=== PATIENT | female | born 1970 | race Caucasian/White ===

== ENCOUNTER 2016-10-06 21:42 | Inpatient (IN) | payer MEDICAID ==
[2016-10-06 22:25] LABS: Hematocrit 38 % (35-47); Hemoglobin 12.8 g/dl (12.0-16.0); Mean Corpuscular HGB Conc 34 g/dl (31-36); Mean Corpuscular Hemoglobin 32 pg (27-31); Mean Corpuscular Volume 95 fL (80-97); Mean Platelet Volume 9 um3 (7.4-10.4); Red Blood Count 3.96 10^6/ul (4.0-5.4); Red Cell Distribution Width 12 % (10.5-15); White Blood Count 9.1 10^3/ul (3.5-10.8)
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
[2016-10-06 22:42] LABS: ALT 36 U/L (7-52); AST 40 U/L (13-39); Albumin 4.5 g/dL (3.2-5.2); Alkaline Phosphatase 45 U/L (34-104); Anion Gap 9 mmol/L (2-11); BUN/Creatinine Ratio 15.4 (8-20); Blood Urea Nitrogen 10 mg/dL (6-24); CO2 Carbon Dioxide 28 mmol/L (22-32); Calcium 9.4 mg/dL (8.6-10.3); Chloride 100 mmol/L (101-111); EGFR African American 125.7 (>60); EGFR Non-African American 97.7 (>60); Globulin 2.9 g/dL (2-4); Glucose 90 mg/dL (70-100); Potassium 2.9 mmol/L (3.5-5.0); Sodium 137 mmol/L (133-145); Total Protein 7.4 g/dL (6.4-8.9)
[2016-10-06 23:06] LABS: Acetaminophen < 15 mcg/mL; Alcohol < 10 mg/dL (<10); Salicylate < 2.50 mg/dL (<30)
[2016-10-06 23:17] LABS: TSH (Thyroid Stimulating Horm) 0.69 mcIU/mL (0.34-5.60)
[2016-10-07] MEDS ORDERED: LORazepam INJ* 2 MG/ML 1 ML VIAL IM ONE (03:17)
[2016-10-07] MEDS ORDERED: Potassium Chloride LIQUID* 20 MEQ PACKET PO ONE (03:37)
[2016-10-07 03:57] LABS: Urine Bilirubin Negative (Negative); Urine Glucose Negative (Negative); Urine Nitrite Negative (Negative)
[2016-10-07 04:11] LABS: Benzodiazepine Urine Screen None Detected (None Detect)
[2016-10-07] MEDS ORDERED: Acetaminophen TAB* 325 MG PO PRN (04:40)
[2016-10-07] MEDS ORDERED: Al Hydrox/Mg Hydrox/Simet LIQ* 30 ML UDC PO PRN (04:40)
[2016-10-07] MEDS: Vitamin THERAPEUTIC TAB PO SCH (10:13)
[2016-10-07] MEDS: Potassium Chlor TAB* 20 MEQ TAB.ER PO SCH (14:23)
[2016-10-07] MEDS: ARIPiprazole TAB* 5 MG PO SCH (20:38)
[2016-10-07] MEDS: Lithium Carbonate TAB* 300 MG PO SCH (20:38)
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
[2016-10-07] MEDS ORDERED: LORazepam INJ* 2 MG/ML 1 ML VIAL ONE (23:12)
[2016-10-07] MEDS ORDERED: Haloperidol INJ IV/IM* 5 MG/ML AMP ONE (23:12)
[2016-10-07] MEDS: LORazepam TAB(*) 1 MG PO PRN (23:25)
[2016-10-08] MEDS: Lithium Carbonate TAB* 300 MG PO SCH (09:12)
[2016-10-08] MEDS: Potassium Chlor TAB* 20 MEQ TAB.ER PO SCH (09:13)
[2016-10-08] MEDS: Vitamin THERAPEUTIC TAB PO SCH (09:13)
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
[2016-10-08] MEDS: Potassium Chloride LIQUID* 20 MEQ PACKET PO SCH (16:25)
[2016-10-08] MEDS ORDERED: Haloperidol INJ IV/IM* 5 MG/ML AMP ONE (19:23)
[2016-10-08] MEDS ORDERED: diPHENhydraMINE IV* 50 MG/ML 1 ml VIAL (BENADRYL) ONE (19:23)
[2016-10-08] MEDS ORDERED: LORazepam INJ* 2 MG/ML 1 ML VIAL ONE (19:23)
[2016-10-08] MEDS ORDERED: LORazepam INJ* 2 MG/ML 1 ML VIAL IM ONE (19:30)
[2016-10-08] MEDS ORDERED: diPHENhydraMINE IV* 50 MG/ML 1 ml VIAL (BENADRYL) IM ONE (19:30)
[2016-10-08] MEDS ORDERED: Haloperidol INJ IV/IM* 5 MG/ML AMP IM ONE (19:30)
[2016-10-08] MEDS: ARIPiprazole TAB* 5 MG PO SCH (20:31)
[2016-10-08] MEDS: Lithium LIQ* 300 MG/5 ML UDC PO SCH (20:31)
[2016-10-09] MEDS: Potassium Chloride LIQUID* 20 MEQ PACKET PO SCH (09:31)
[2016-10-09] MEDS: Lithium LIQ* 300 MG/5 ML UDC PO SCH ×2 (09:31→21:23)
[2016-10-09] MEDS: Vitamin THERAPEUTIC TAB PO SCH (09:32)
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
[2016-10-09] MEDS: ARIPiprazole TAB* 5 MG PO SCH (21:23)
[2016-10-09] MEDS: QUEtiapine XR TAB* 200 MG PO SCH (21:23)
[2016-10-10] MEDS: Vitamin THERAPEUTIC TAB PO SCH (08:15)
[2016-10-10] MEDS: Potassium Chloride LIQUID* 20 MEQ PACKET PO SCH (08:16)
[2016-10-10] MEDS: Lithium LIQ* 300 MG/5 ML UDC PO SCH ×2 (08:17→20:52)
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
[2016-10-10] MEDS: QUEtiapine XR TAB* 200 MG PO SCH (20:52)
[2016-10-10] MEDS: ARIPiprazole TAB* 5 MG PO SCH (20:56)
[2016-10-11] MEDS ORDERED: LORazepam INJ* 2 MG/ML 1 ML VIAL ONE (08:44)
[2016-10-11] MEDS ORDERED: Haloperidol INJ IV/IM* 5 MG/ML AMP ONE (08:45)
[2016-10-11] MEDS ORDERED: diPHENhydraMINE IV* 50 MG/ML 1 ml VIAL (BENADRYL) ONE (08:45)
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
[2016-10-11] MEDS: Potassium Chloride LIQUID* 20 MEQ PACKET PO SCH (09:48)
[2016-10-11] MEDS: Lithium LIQ* 300 MG/5 ML UDC PO SCH ×2 (09:48→20:23)
[2016-10-11] MEDS: Vitamin THERAPEUTIC TAB PO SCH (09:49)
[2016-10-11] MEDS: QUEtiapine XR TAB* 200 MG PO SCH (20:23)
[2016-10-11] MEDS: ARIPiprazole TAB* 5 MG PO SCH (20:23)
[2016-10-12] MEDS: Potassium Chloride LIQUID* 20 MEQ PACKET PO SCH (07:28)
[2016-10-12] MEDS: Vitamin THERAPEUTIC TAB PO SCH (07:28)
[2016-10-12] MEDS: Lithium LIQ* 300 MG/5 ML UDC PO SCH ×2 (07:28→20:14)
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
[2016-10-12] MEDS: QUEtiapine XR TAB* 200 MG PO SCH (20:14)
[2016-10-12] MEDS: ARIPiprazole TAB* 5 MG PO SCH (20:14)
[2016-10-13] MEDS ORDERED: Vitamin THERAPEUTIC TAB ONE (09:17)
[2016-10-13] MEDS: Potassium Chloride LIQUID* 20 MEQ PACKET PO SCH (09:17)
[2016-10-13] MEDS: Vitamin THERAPEUTIC TAB PO SCH (09:18)
[2016-10-13] MEDS: Lithium LIQ* 300 MG/5 ML UDC PO SCH ×2 (09:24→20:22)
[2016-10-13] MEDS: ARIPiprazole TAB* 5 MG PO SCH (20:20)
[2016-10-13] MEDS: QUEtiapine XR TAB* 200 MG PO SCH (20:22)
[2016-10-14] MEDS: Lithium LIQ* 300 MG/5 ML UDC PO SCH ×2 (09:06→20:45)
[2016-10-14] MEDS: Potassium Chloride LIQUID* 20 MEQ PACKET PO SCH (09:06)
[2016-10-14] MEDS: Vitamin THERAPEUTIC TAB PO SCH (09:07)
[2016-10-14] MEDS: QUEtiapine XR TAB* 200 MG PO SCH (20:45)
[2016-10-14] MEDS: ARIPiprazole TAB* 5 MG PO SCH (20:45)
[2016-10-15] MEDS: Lithium LIQ* 300 MG/5 ML UDC PO SCH ×2 (07:59→20:54)
[2016-10-15] MEDS: Potassium Chloride LIQUID* 20 MEQ PACKET PO SCH (07:59)
[2016-10-15] MEDS: Vitamin THERAPEUTIC TAB PO SCH (08:00)
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
[2016-10-15] MEDS: QUEtiapine XR TAB* 200 MG PO SCH (20:54)
[2016-10-15] MEDS: ARIPiprazole TAB* 5 MG PO SCH (21:15)
[2016-10-16] MEDS: Lithium LIQ* 300 MG/5 ML UDC PO SCH ×2 (09:16→21:01)
[2016-10-16] MEDS: Potassium Chloride LIQUID* 20 MEQ PACKET PO SCH (09:18)
[2016-10-16] MEDS: Vitamin THERAPEUTIC TAB PO SCH (09:19)
--- NOTE | 2016-10-16 11:45 | PN ---
MHU: Group Therapy Note - Service Type Service Type: [id number] Group Psychotherapy - Cognitive Behavioral Group Therapy ( CBT):Patient presented in CBT programming as disorganized and disruptive in discussion and needed repeated redirection to attend to presented materials.
[2016-10-16] MEDS: QUEtiapine XR TAB* 200 MG PO SCH (21:01)
[2016-10-16] MEDS: ARIPiprazole TAB* 5 MG PO SCH (21:01)
[2016-10-16] MEDS ORDERED: diPHENhydraMINE IV* 50 MG/ML 1 ml VIAL (BENADRYL) ONE (21:38)
[2016-10-16] MEDS ORDERED: LORazepam INJ* 2 MG/ML 1 ML VIAL ONE (21:38)
[2016-10-16] MEDS ORDERED: Haloperidol INJ IV/IM* 5 MG/ML AMP ONE (21:38)
[2016-10-17] MEDS: Potassium Chloride LIQUID* 20 MEQ PACKET PO SCH (08:44)
[2016-10-17] MEDS: Vitamin THERAPEUTIC TAB PO SCH (08:44)
[2016-10-17] MEDS: Lithium LIQ* 300 MG/5 ML UDC PO SCH ×2 (08:44→21:15)
[2016-10-17] MEDS ORDERED: Ziprasidone IM INJ* 20 MG/ML VIAL IM PRN (15:15)
[2016-10-17] MEDS ORDERED: QUEtiapine XR TAB* 200 MG PO SCH (15:20)
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
[2016-10-17] MEDS: ARIPiprazole TAB* 5 MG PO SCH (21:17)
[2016-10-18] MEDS: Potassium Chloride LIQUID* 20 MEQ PACKET PO SCH (09:19)
[2016-10-18] MEDS: Vitamin THERAPEUTIC TAB PO SCH (09:23)
[2016-10-18] MEDS: Lithium LIQ* 300 MG/5 ML UDC PO SCH ×2 (09:23→20:20)
[2016-10-18] MEDS ORDERED: QUEtiapine XR TAB* 50 MG PO SCH (21:00)
[2016-10-18] MEDS: ARIPiprazole TAB* 5 MG PO SCH (22:18)
[2016-10-19] MEDS: Lithium LIQ* 300 MG/5 ML UDC PO SCH ×2 (08:16→20:31)
[2016-10-19] MEDS: Potassium Chloride LIQUID* 20 MEQ PACKET PO SCH (08:16)
[2016-10-19] MEDS: Vitamin THERAPEUTIC TAB PO SCH (08:17)
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
[2016-10-19] MEDS: QUEtiapine XR TAB* 200 MG PO SCH (20:31)
[2016-10-20] MEDS: Lithium LIQ* 300 MG/5 ML UDC PO SCH ×2 (10:39→21:01)
[2016-10-20] MEDS: LORazepam TAB(*) 1 MG PO PRN (10:39)
[2016-10-20] MEDS: Vitamin THERAPEUTIC TAB PO SCH (10:45)
[2016-10-20] MEDS: Potassium Chloride LIQUID* 20 MEQ PACKET PO SCH (10:46)
[2016-10-20 11:01] LABS: BUN/Creatinine Ratio 16.2 (8-20); Calcium 9.6 mg/dL (8.6-10.3); EGFR African American 108.2 (>60); EGFR Non-African American 84.1 (>60); Potassium 3.5 mmol/L (3.5-5.0)
[2016-10-20 11:25] LABS: Lithium 0.22 mmol/L (0.6-1.2)
[2016-10-20] MEDS: QUEtiapine XR TAB* 200 MG PO SCH (21:04)
[2016-10-21] MEDS: Potassium Chloride LIQUID* 20 MEQ PACKET PO SCH (09:45)
[2016-10-21] MEDS: Lithium LIQ* 300 MG/5 ML UDC PO SCH ×2 (09:45→20:50)
[2016-10-21] MEDS: Vitamin THERAPEUTIC TAB PO SCH (09:45)
--- NOTE | 2016-10-21 20:08 | PN ---
Progress Note - Progress Note Note: Patient told there are two patients on the unit (did not disclose their names) who have tested positive for Influenza A and I am recommending taking Tamiflu as a prophylactic measure. I made it clear this was optional. She declined the treatment after hearing of the indications, risks, benefits and alternatives, stating she she has knowledge this is an [facility] experiment.
[2016-10-21] MEDS: QUEtiapine XR TAB* 200 MG PO SCH (20:50)
[2016-10-22] MEDS: Vitamin THERAPEUTIC TAB PO SCH (09:35)
[2016-10-22] MEDS: Potassium Chloride LIQUID* 20 MEQ PACKET PO SCH (09:46)
[2016-10-22] MEDS: Lithium LIQ* 300 MG/5 ML UDC PO SCH ×2 (09:46→20:47)
--- NOTE | 2016-10-22 10:48 | PN ---
Subjective - Subjective Service Type: 90368 Hosp care 15 min low complexity Subjective: The patient remains hyperverbal and manic, asking me questions about herbal products for her mood and suggesting that her right-hand dominance has led to her disability. She is taking meds in accordance with the timber trimmer's involuntary treatment order. Objective - Appearance Appearance: Healthy Appearing Dysmorphic Features: No Hygiene: Normal Grooming: Well Kept - Behavior Psychomotor Activities: Abnormal-Increased Exhibits Abnormal Movement: No - Attitude and Relatedness Attitude and Relatedness: Psychotically Related Eye Contact: Fair - Speech Quality: Pressured Latencies: Short Quantity: Copious - Mood Patient's Decription of Mood: "Fine" - Affect Observed Affect: Labile Affect Consistent with: Euphoria - Thought Process Patient's Thought Process: Filght of Ideas Thought Content: Yes Paranoid Ideation, No Passive Wish, No Suicidal Planning, No Homicidal Ideation - Sensorium Experiencing Hallucinations: No, Sensorium is Clear Type of Hallucinations: Visual: No, Auditory: No, Command: No - Level of Consciousness Level of Consciousness: Alert Orientation: Yes Intact, Yes Orientated to Time, Yes Orientated to Place, Yes Orientated to Person - Impulse Control Impulse Control: Poor - Insight and Judgement Insight and Judgement: Impaired - Group Participation Particating in Group Activities: No - Medication Management Medication Management Adherence: Yes Assessment - Assessment Merits Inpatient Hospitalization: For Immediate Safety, For Stabilization Inpatient DSM-IV Dx: BPAD I MRE manic with psychosis. cannabis use disorder Clinical Impression: 45 y.o. single, white female with a history of multiple past psychiatric hospitalizations for bipolar disorder now admitted involuntarily and receiving forced medications for acute chan with psychosis. Plan - Plan Treatment Plan: Name: JEREL WALTERS Birthdate: 1970 [id number] Patient tolerating quetiapine and lithium well so far. Will order lithium, HbgA1c and lipid labs. Continue involuntary treatment as patient remains acutely manic and dangerous to herself. Continued Medication Management: Start Medication Medications: Current Medications Acetaminophen (Tylenol Tab*) 650 mg PO Q4H PRN PRN Reason: PAIN or TEMP > 101 F Al Hydrox/Mg Hydrox/Simethicone (Maalox Plus*) 30 ml PO Q4H PRN PRN Reason: INDIGESTION [place] Citrate ([place] Liq*) 300 mg PO BID [facility] Last Admin: 10/22/16 09:46 Dose: 300 mg Lorazepam (Ativan Tab(*)) 2 mg PO Q6H PRN PRN Reason: ANXIETY Last Admin: 10/20/16 10:39 Dose: 2 mg Multivitamins (Theragran Tab*) 1 tab PO DAILY [facility] Last Admin: 10/22/16 09:35 Dose: 1 tab Potassium Chloride (Klor-Con Liquid*) 20 meq PO DAILY [facility] Last Admin: 10/22/16 09:46 Dose: 20 meq Quetiapine Fumarate (Seroquel Xr Tab*) 200 mg PO BEDTIME [facility] Last Admin: 10/21/16 20:50 Dose: 200 mg Ziprasidone (Geodon Im Inj*) 20 mg IM BID PRN PRN Reason: Refusal of Seroquel or Li Last Admin: 10/18/16 11:17 Dose: 20 mg - Discharge Plan Discharge Plan: Inpatient Hospitalization
--- NOTE | 2016-10-22 12:00 | PN ---
[facility]: Group Therapy Note - Service Type Service Type: [id number] Group Psychotherapy - Dayanna presented as hyperverbal throughout cbt programming this morning. She impresses as over valuing her thoughts, exhibting poor insight regarding her symptoms and remaining angry about being coerced into taking medications by court order.
[2016-10-22] MEDS: QUEtiapine XR TAB* 200 MG PO SCH (20:48)
[2016-10-23 08:11] LABS: HDL Cholesterol 60.5 mg/dL
[2016-10-23 08:24] LABS: Lithium 0.37 mmol/L (0.6-1.2)
[2016-10-23] MEDS: Potassium Chloride LIQUID* 20 MEQ PACKET PO SCH (11:19)
[2016-10-23] MEDS: Vitamin THERAPEUTIC TAB PO SCH (11:19)
[2016-10-23] MEDS: Lithium LIQ* 300 MG/5 ML UDC PO SCH ×2 (11:20→21:13)
[2016-10-23] MEDS: QUEtiapine XR TAB* 200 MG PO SCH (21:08)
[2016-10-24] MEDS: Lithium LIQ* 300 MG/5 ML UDC PO SCH ×2 (09:47→21:02)
[2016-10-24] MEDS: Potassium Chloride LIQUID* 20 MEQ PACKET PO SCH (09:47)
[2016-10-24] MEDS: Vitamin THERAPEUTIC TAB PO SCH (09:47)
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
[2016-10-24] MEDS: QUEtiapine XR TAB* 200 MG PO SCH (21:02)
[2016-10-25] MEDS: Temazepam CAP* 15 MG PO PRN (01:03)
[2016-10-25 07:45] LABS: Albumin 3.8 g/dL (3.2-5.2); Calcium 9.1 mg/dL (8.6-10.3); EGFR African American 137.8 (>60); EGFR Non-African American 107.2 (>60); Globulin 2.8 g/dL (2-4); Total Bilirubin 0.4 mg/dL (0.2-1.0); Total Protein 6.6 g/dL (6.4-8.9)
[2016-10-25 07:58] LABS: Lithium 0.48 mmol/L (0.6-1.2)
[2016-10-25] MEDS: Vitamin THERAPEUTIC TAB PO SCH (09:50)
[2016-10-25] MEDS: Potassium Chloride LIQUID* 20 MEQ PACKET PO SCH (09:50)
[2016-10-25] MEDS: Lithium LIQ* 300 MG/5 ML UDC PO SCH ×2 (09:51→21:41)
[2016-10-25 10:32] LABS: Syphilis Index < 0.1 Index
[2016-10-25 10:54] LABS: Potassium 4.1 mmol/L (3.5-5.0)
[2016-10-25 13:14] LABS: TSH (Thyroid Stimulating Horm) 1.8 mcIU/mL (0.34-5.60)
[2016-10-25] MEDS: QUEtiapine XR TAB* 200 MG PO SCH (21:40)
[2016-10-26] MEDS: Temazepam CAP* 15 MG PO PRN ×2 (04:04→20:13)
[2016-10-26] MEDS: Potassium Chloride LIQUID* 20 MEQ PACKET PO SCH (09:05)
[2016-10-26] MEDS: Lithium LIQ* 300 MG/5 ML UDC PO SCH (09:30)
[2016-10-26] MEDS: Vitamin THERAPEUTIC TAB PO SCH (09:30)
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
[2016-10-26] MEDS: QUEtiapine XR TAB* 200 MG PO SCH (20:13)
[2016-10-26] MEDS: Lithium Carbonate TAB* 300 MG PO SCH (20:14)
[2016-10-26] MEDS ORDERED: Divalproex ER TAB(*) 500 MG PO SCH (21:00)
[2016-10-27] MEDS: Vitamin THERAPEUTIC TAB PO SCH (08:26)
[2016-10-27] MEDS: Lithium Carbonate TAB* 300 MG PO SCH ×2 (08:41→20:45)
[2016-10-27] MEDS: Potassium Chloride LIQUID* 20 MEQ PACKET PO SCH (08:42)
[2016-10-27] MEDS: Temazepam CAP* 15 MG PO PRN (20:47)
[2016-10-27] MEDS: QUEtiapine XR TAB* 200 MG PO SCH (21:29)
[2016-10-28] MEDS: Vitamin THERAPEUTIC TAB PO SCH (09:09)
[2016-10-28] MEDS: Lithium Carbonate TAB* 300 MG PO SCH ×2 (09:09→20:30)
[2016-10-28] MEDS: Potassium Chloride LIQUID* 20 MEQ PACKET PO SCH (09:14)
[2016-10-28] MEDS ORDERED: QUEtiapine TAB* 100 MG PO ONE (13:29)
[2016-10-28] MEDS: Temazepam CAP* 15 MG PO PRN (20:31)
[2016-10-28] MEDS: QUEtiapine XR TAB* 200 MG PO SCH (20:32)
[2016-10-29] MEDS: Lithium Carbonate TAB* 300 MG PO SCH ×2 (10:01→20:31)
[2016-10-29] MEDS: Vitamin THERAPEUTIC TAB PO SCH (10:01)
[2016-10-29] MEDS: Potassium Chloride LIQUID* 20 MEQ PACKET PO SCH (10:01)
--- NOTE | 2016-10-29 11:09 | PN ---
[facility]: Group Therapy Note - Service Type Service Type: 07452 Group Psychotherapy - Cognitive Behavioral Therapy (CBT): Patient presents with high volume of speech that impresses as being coherent within the context of self-report, but is tangential and off topic in group context. Concerns regarding disorganization of thought are apparent.
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
[2016-10-29] MEDS ORDERED: QUEtiapine XR TAB* 300 MG PO SCH (21:00)
[2016-10-30] MEDS: LORazepam TAB(*) 1 MG PO PRN (04:05)
[2016-10-30] MEDS: Lithium Carbonate TAB* 300 MG PO SCH ×2 (10:08→20:55)
[2016-10-30] MEDS: Vitamin THERAPEUTIC TAB PO SCH (10:09)
[2016-10-30] MEDS: Potassium Chloride LIQUID* 20 MEQ PACKET PO SCH (10:11)
[2016-10-30] MEDS: QUEtiapine XR TAB* 200 MG PO SCH (20:55)
[2016-10-30] MEDS: Temazepam CAP* 15 MG PO SCH (21:55)
[2016-10-31] MEDS: Vitamin THERAPEUTIC TAB PO SCH (09:05)
[2016-10-31] MEDS: Lithium Carbonate TAB* 300 MG PO SCH ×2 (09:05→21:34)
[2016-10-31] MEDS: Potassium Chloride LIQUID* 20 MEQ PACKET PO SCH (09:06)
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
--- NOTE | 2016-10-31 12:54 | PN ---
MHU: Group Therapy Note - Service Type Service Type: [id number] Group Psychotherapy - Cognitive Behavioral Group Therapy ( CBT):Patient was attentive and participatory in CBT programming this morning, and remained in good behavioral control. Patient expressed positive insights regarding relevant treatment interventions and goals.
--- NOTE | 2016-10-31 18:28 | PN ---
Progress Note - Progress Note Note: Performed limited evaluation re: possible oral thrush. Pt has had voice hoarseness x 2 months. Remembers having "residue" on her gums 1 week ago. denies pain with swallowing or sore throat. On evaluation the oropharynx is grossly clear with scant injection of posterior oropharynx rising the possibility of GERD. Will prescribe Prilosec 20 mg Daily. If symptoms continue despite med use x 2 weeks recommend ENT evaluation
[2016-10-31] MEDS: Temazepam CAP* 15 MG PO SCH (21:35)
[2016-10-31] MEDS: QUEtiapine XR TAB* 200 MG PO SCH (21:35)
[2016-11-01] MEDS: Omeprazole CAP* 20 MG PO SCH (05:56)
[2016-11-01] MEDS: Lithium Carbonate TAB* 300 MG PO SCH ×2 (09:19→21:25)
[2016-11-01] MEDS: Vitamin THERAPEUTIC TAB PO SCH (09:19)
[2016-11-01] MEDS: Potassium Chloride LIQUID* 20 MEQ PACKET PO SCH (09:20)
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
--- NOTE | 2016-11-01 13:51 | PN ---
MHU: Group Therapy Note - Service Type Service Type: [id number] Group Psychotherapy - Cognitive Behavioral Group Therapy ( CBT):Patient was attentive and participatory in CBT programming this morning, and remained in good behavioral control. Patient expressed positive insights regarding relevant treatment interventions and goals.
[2016-11-01] MEDS: QUEtiapine XR TAB* 200 MG PO SCH (21:24)
[2016-11-01] MEDS: Temazepam CAP* 15 MG PO SCH (21:24)
[2016-11-01] MEDS: QUEtiapine XR TAB* 300 MG PO SCH (21:24)
[2016-11-02] MEDS: Vitamin THERAPEUTIC TAB PO SCH (08:37)
[2016-11-02] MEDS: Omeprazole CAP* 20 MG PO SCH (08:38)
[2016-11-02] MEDS: Lithium Carbonate TAB* 300 MG PO SCH ×2 (08:39→21:47)
[2016-11-02] MEDS ORDERED: Fluconazole 100 MG TAB* TAB PO ONE (13:15)
--- NOTE | 2016-11-02 13:22 | PN ---
Subjective - Subjective Service Type: [id number] Hosp care 15 min low complexity Subjective: The patient is seen briefly in the doorway to her room on the unit. Also present are her friend, Zully, and nurse Mira. The patient is hyperverbal and talks at length about a succession of disparate topics, from rap music, to therapeutic massage. "Are you my doctor for the day? This is Zully. She is a massage therapist also. She would put her hands on you, but she would ask you questions too. She would want to know how to heal you." The patient brings up the subject of her raspy throat, which she feels is preventing her from singing and rapping effectively on the unit. "I talked to the med nurse and he says it might be thrush. He thinks I need diflucan." She denies SI or HI. Objective - Appearance Appearance: Healthy Appearing Dysmorphic Features: No Hygiene: Normal Grooming: Fairly Well Kept - Behavior Psychomotor Activities: Abnormal-Increased Exhibits Abnormal Movement: No - Attitude and Relatedness Attitude and Relatedness: Psychotically Related Eye Contact: Good - Speech Quality: Pressured Latencies: Short Quantity: Copious - Mood Patient's Decription of Mood: "Great" - Affect Observed Affect: Euphoric Affect Consistent with: Euphoria - Thought Process Patient's Thought Process: Filght of Ideas Thought Content: Yes Paranoid Ideation, No Passive Wish, No Suicidal Planning, No Homicidal Ideation - Sensorium Experiencing Hallucinations: No, Sensorium is Clear Type of Hallucinations: Visual: No, Auditory: No, Command: No - Level of Consciousness Level of Consciousness: Alert Orientation: Yes Intact, Yes Orientated to Time, Yes Orientated to Place, Yes Orientated to Person - Impulse Control Impulse Control: Poor - Insight and Judgement Insight and Judgement: Impaired - Group Participation Particating in Group Activities: Yes - Medication Management Medication Management Adherence: Yes Assessment - Assessment Merits Inpatient Hospitalization: For Immediate Safety, For Stabilization Inpatient DSM-IV Dx: BPAD I MRE manic with psychosis. cannabis use disorder Clinical Impression: 45 y.o. single, white female with a history of multiple past psychiatric hospitalizations for bipolar disorder now admitted involuntarily and receiving forced medications for acute chan with psychosis. Plan - Plan Treatment Plan: Name: JEREL WALTERS Birthdate: 1970 [id number] Patient tolerating quetiapine and lithium well so far, but awaiting efficacy. Continue involuntary treatment as patient remains acutely manic and dangerous to herself. Will order one-time dose of diflucan 150mg PO for oral candidiasis , as per patient's insistence. Continued Medication Management: Start Medication Medications: Current Medications Acetaminophen (Tylenol Tab*) 650 mg PO Q4H PRN PRN Reason: PAIN or TEMP > 101 F Al Hydrox/Mg Hydrox/Simethicone (Maalox Plus*) 30 ml PO Q4H PRN PRN Reason: INDIGESTION Last Admin: 10/31/16 18:44 Dose: 30 ml Fluconazole (Diflucan 100 Mg Tab*) 150 mg PO ONCE ONE Stop: 11/02/16 13:16 [place] Carbonate ([place] Carbonate Tab*) 600 mg PO BID [facility] Last Admin: 11/02/16 08:39 Dose: 600 mg Lorazepam (Ativan Tab(*)) 2 mg PO Q6H PRN PRN Reason: ANXIETY Last Admin: 10/30/16 04:05 Dose: 2 mg Multivitamins (Theragran Tab*) 1 tab PO DAILY [facility] Last Admin: 11/02/16 08:37 Dose: 1 tab Omeprazole (Prilosec Cap*) 20 mg PO DAILY@0600 [facility] Last Admin: 11/02/16 08:38 Dose: 20 mg Quetiapine Fumarate (Seroquel Xr Tab*) 200 mg PO BEDTIME [facility] Last Admin: 11/01/16 21:24 Dose: 200 mg Quetiapine Fumarate (Seroquel Xr Tab*) 300 mg PO BEDTIME [facility] Last Admin: 11/01/16 21:24 Dose: 300 mg Temazepam (Restoril Cap*) 15 mg PO BEDTIME [facility] Last Admin: 11/01/16 21:24 Dose: 15 mg Ziprasidone (Geodon Im Inj*) 20 mg IM BID PRN PRN Reason: Refusal of Seroquel or Li Last Admin: 10/18/16 11:17 Dose: 20 mg - Discharge Plan Discharge Plan: Inpatient Hospitalization
[2016-11-02] MEDS: QUEtiapine XR TAB* 200 MG PO SCH (21:46)
[2016-11-02] MEDS: QUEtiapine XR TAB* 300 MG PO SCH (21:46)
[2016-11-02] MEDS: Temazepam CAP* 15 MG PO SCH (21:47)
[2016-11-03] MEDS: Omeprazole CAP* 20 MG PO SCH (09:46)
[2016-11-03] MEDS: Vitamin THERAPEUTIC TAB PO SCH (09:46)
[2016-11-03] MEDS: Lithium Carbonate TAB* 300 MG PO SCH ×2 (09:46→20:32)
[2016-11-03] MEDS: Temazepam CAP* 15 MG PO SCH (20:32)
[2016-11-03] MEDS: QUEtiapine XR TAB* 300 MG PO SCH (20:32)
[2016-11-03] MEDS: QUEtiapine XR TAB* 200 MG PO SCH (20:32)
[2016-11-04] MEDS: Omeprazole CAP* 20 MG PO SCH (06:01)
[2016-11-04] MEDS: Lithium Carbonate TAB* 300 MG PO SCH ×2 (08:38→21:48)
[2016-11-04] MEDS: Vitamin THERAPEUTIC TAB PO SCH (08:38)
[2016-11-04] MEDS: Temazepam CAP* 15 MG PO SCH (21:46)
[2016-11-04] MEDS: QUEtiapine XR TAB* 200 MG PO SCH (21:47)
[2016-11-04] MEDS: QUEtiapine XR TAB* 300 MG PO SCH (21:48)
[2016-11-05] MEDS: Vitamin THERAPEUTIC TAB PO SCH (08:32)
[2016-11-05] MEDS: Omeprazole CAP* 20 MG PO SCH (08:32)
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
[2016-11-05] MEDS: Lithium Carbonate TAB* 300 MG PO SCH ×2 (11:14→21:53)
[2016-11-05] MEDS: Temazepam CAP* 15 MG PO SCH (21:54)
[2016-11-05] MEDS: QUEtiapine XR TAB* 300 MG PO SCH (21:54)
[2016-11-06] MEDS: Omeprazole CAP* 20 MG PO SCH (09:21)
[2016-11-06] MEDS: Vitamin THERAPEUTIC TAB PO SCH (09:21)
[2016-11-06] MEDS: Lithium Carbonate TAB* 300 MG PO SCH ×2 (09:21→21:38)
[2016-11-06] MEDS: QUEtiapine XR TAB* 300 MG PO SCH (21:38)
[2016-11-06] MEDS: Temazepam CAP* 15 MG PO SCH (21:39)
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
[2016-11-07 08:09] LABS: BUN/Creatinine Ratio 17.6 (8-20); Calcium 9.5 mg/dL (8.6-10.3); EGFR African American 119.3 (>60); EGFR Non-African American 92.7 (>60); Globulin 2.8 g/dL (2-4); Potassium 4.3 mmol/L (3.5-5.0); Total Bilirubin 0.3 mg/dL (0.2-1.0); Total Protein 6.8 g/dL (6.4-8.9)
[2016-11-07 08:15] LABS: Lithium 0.81 mmol/L (0.6-1.2)
[2016-11-07] MEDS: Omeprazole CAP* 20 MG PO SCH (09:16)
[2016-11-07] MEDS: Lithium Carbonate TAB* 300 MG PO SCH ×2 (09:16→21:23)
[2016-11-07] MEDS: Vitamin THERAPEUTIC TAB PO SCH (09:17)
--- NOTE | 2016-11-07 10:59 | PN ---
MHU: Group Therapy Note - Service Type Service Type: 40776 Group Psychotherapy - Cognitive Behavioral Group Therapy ( CBT):Patient was attentive and participatory in CBT programming this morning, and remained in good behavioral control. Patient expressed positive insights regarding relevant treatment interventions and goals.
[2016-11-07] MEDS: Temazepam CAP* 15 MG PO SCH (21:24)
[2016-11-07] MEDS: QUEtiapine XR TAB* 300 MG PO SCH (21:24)
[2016-11-08] MEDS: Vitamin THERAPEUTIC TAB PO SCH (08:31)
[2016-11-08] MEDS: Omeprazole CAP* 20 MG PO SCH (08:31)
[2016-11-08] MEDS: Lithium Carbonate TAB* 300 MG PO SCH ×2 (08:32→20:29)
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
[2016-11-08] MEDS: QUEtiapine XR TAB* 300 MG PO SCH (20:29)
[2016-11-08] MEDS: Temazepam CAP* 15 MG PO SCH (20:29)
[2016-11-09] MEDS: Omeprazole CAP* 20 MG PO SCH (07:59)
[2016-11-09] MEDS: Lithium Carbonate TAB* 300 MG PO SCH ×2 (07:59→20:34)
[2016-11-09] MEDS: Vitamin THERAPEUTIC TAB PO SCH (07:59)
--- NOTE | 2016-11-09 12:02 | PN ---
Subjective - Subjective Service Type: 32525 Hosp care 15 min low complexity Subjective: Dayanna is seen by this observer this morning as coverage for Dr. Liang, who is out until Saturday (11/12). She is found in her room, on the door to which she has posted a scrawled note requesting entrants to knock and await her response before entering. She has several magazines and papers carefully and idiosyncratically arranged on the floor on top of a blanket and she is wearing what appears to be a dish-rag wrapped around her head like a bandana. After taking some time to compose herself she joins me at the table in the hallway to discuss her care. She voices no complaints about her illnesses and states she feels ready for discharge. As she speaks she veers into vaguely paranoid and grandiose subject material at times, for example, talking at length about her feeling that someone is entering her property uninvited and dropping cigarette butts in her yard. 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 At times during the interview she seems to catch herself and moves the discourse into more mundane subjects such as how she will support her self occupationally after her release. She is hyperverbal and spacey throughout the interaction. Objective - Appearance Appearance: Well Developed/Nourished Dysmorphic Features: No Hygiene: Normal Grooming: Fairly Well Kept - Behavior Psychomotor Activities: Normal Exhibits Abnormal Movement: No - Attitude and Relatedness Attitude and Relatedness: Psychotically Related Eye Contact: Fair - Speech Quality: Pressured Latencies: Short Quantity: Copious - Mood Patient's Decription of Mood: "Great" - Affect Observed Affect: Expansive Affect Consistent with: Euphoria - Thought Process Patient's Thought Process: Tangential Thought Content: Yes Paranoid Ideation, No Passive Wish, No Suicidal Planning, No Homicidal Ideation - Sensorium Experiencing Hallucinations: No, Sensorium is Clear Type of Hallucinations: Visual: No, Auditory: No, Command: No - Level of Consciousness Level of Consciousness: Alert Orientation: Yes Intact, Yes Orientated to Time, Yes Orientated to Place, Yes Orientated to Person - Impulse Control Impulse Control: Poor - Insight and Judgement Insight and Judgement: Impaired - Group Participation Particating in Group Activities: Yes - Medication Management Medication Management Adherence: Yes Assessment - Assessment Merits Inpatient Hospitalization: For Immediate Safety, For Stabilization Inpatient DSM-IV Dx: BPAD I MRE manic with psychosis. cannabis use disorder Clinical Impression: 45 y.o. single, white female with a history of multiple past psychiatric hospitalizations for bipolar disorder now admitted involuntarily and receiving forced medications for acute chan with psychosis. Plan - Plan Treatment Plan: Name: DAYANNA WALTERS Birthdate: 1970 [id number] Patient tolerating quetiapine and lithium well so far, but awaiting full response. Continue involuntary treatment as patient remains hypomanic, at the least, and likely still in danger of relapse. Dr. Liang to follow up on Saturday (11/12). Continued Medication Management: Different Medication Medications: Current Medications Acetaminophen (Tylenol Tab*) 650 mg PO Q4H PRN PRN Reason: PAIN or TEMP > 101 F Al Hydrox/Mg Hydrox/Simethicone (Maalox Plus*) 30 ml PO Q4H PRN PRN Reason: INDIGESTION Last Admin: 10/31/16 18:44 Dose: 30 ml [place] Carbonate ([place] Carbonate Tab*) 600 mg PO BID CATINA Last Admin: 11/09/16 07:59 Dose: 600 mg Lorazepam (Ativan Tab(*)) 2 mg PO Q6H PRN PRN Reason: ANXIETY Last Admin: 10/30/16 04:05 Dose: 2 mg Multivitamins (Theragran Tab*) 1 tab PO DAILY CATINA Last Admin: 11/09/16 07:59 Dose: 1 tab Omeprazole (Prilosec Cap*) 20 mg PO DAILY CATINA Last Admin: 11/09/16 07:59 Dose: 20 mg Quetiapine Fumarate (Seroquel Xr Tab*) 600 mg PO BEDTIME CATINA Last Admin: 11/08/16 20:29 Dose: 600 mg Temazepam (Restoril Cap*) 15 mg PO BEDTIME CATINA Last Admin: 11/08/16 20:29 Dose: 15 mg Ziprasidone (Geodon Im Inj*) 20 mg IM BID PRN PRN Reason: Refusal of Seroquel or Li Last Admin: 10/18/16 11:17 Dose: 20 mg - Discharge Plan Discharge Plan: Inpatient Hospitalization
[2016-11-09] MEDS: QUEtiapine XR TAB* 300 MG PO SCH (20:34)
[2016-11-09] MEDS: Temazepam CAP* 15 MG PO SCH (20:35)
[2016-11-10] MEDS: Omeprazole CAP* 20 MG PO SCH (09:08)
[2016-11-10] MEDS: Lithium Carbonate TAB* 300 MG PO SCH ×2 (09:08→20:46)
[2016-11-10] MEDS: Vitamin THERAPEUTIC TAB PO SCH (09:08)
[2016-11-10] MEDS: QUEtiapine XR TAB* 300 MG PO SCH (20:46)
[2016-11-10] MEDS: Temazepam CAP* 15 MG PO SCH (20:47)
[2016-11-11] MEDS: Vitamin THERAPEUTIC TAB PO SCH (09:01)
[2016-11-11] MEDS: Lithium Carbonate TAB* 300 MG PO SCH ×2 (09:01→21:25)
[2016-11-11] MEDS: Omeprazole CAP* 20 MG PO SCH (09:01)
[2016-11-11] MEDS: QUEtiapine XR TAB* 300 MG PO SCH (21:25)
[2016-11-11] MEDS: Temazepam CAP* 15 MG PO SCH (21:25)
[2016-11-12] MEDS: Omeprazole CAP* 20 MG PO SCH (10:08)
[2016-11-12] MEDS: Vitamin THERAPEUTIC TAB PO SCH (10:08)
[2016-11-12] MEDS: Lithium Carbonate TAB* 300 MG PO SCH (10:08)
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
[2016-11-12 18:35] VITALS: BP 142/90
== END 2016-11-12 17:45 | disposition home or self-care (01) | DRG 885 ==
LOC: ED 21:42 → BSU 10-07 04:12 → UNDODISIN 10-12 11:55 → BSU 10-21 21:31
PROVIDERS: ADMIT Psychiatry & Neurology Psychiatry; ATTEND Psychiatry & Neurology Psychiatry
PROC: GZHZZZZ Group Psychotherapy (ICD-10-PCS; principal; 2016-10-07)
DX: F31.2 Bipolar disorder, current episode manic severe with psychotic features (principal); F12.90 Cannabis use, unspecified, uncomplicated; Z82.49 Family history of ischemic heart disease and other diseases of the circulatory system; Z80.9 Family history of malignant neoplasm, unspecified
CPT/HCPCS: 36415; 80048; 80053; 80061; 80178; 80307; 80320; 80329; 81003; 83036; 84132; 84443; 84702; 85025; 86592; 86703; 86803; 87491; 87591; 90853; 96372; 99222; 99231; 99232; 99233; 99238; 99283; A9270-GY; G0480; J1200; J1630; J2060

== ENCOUNTER 2017-08-15 20:47 | Inpatient (IN) | payer OTHER ==
[2017-08-15] MEDS ORDERED: LORazepam INJ* 2 MG/ML 1 ML VIAL ONE (21:20)
[2017-08-15] MEDS ORDERED: diPHENhydraMINE IV* 50 MG/ML 1 ml VIAL (BENADRYL) ONE (21:20)
[2017-08-15] MEDS ORDERED: Haloperidol INJ IV/IM* 5 MG/ML AMP ONE (21:20)
[2017-08-15 22:27] LABS: ABS Basophils 0.1 10^3/ul (0-0.2); ABS Eosinophils 0.1 10^3/ul (0-0.6); ABS Lymphocytes 1.6 10^3/ul (1.0-4.8); ABS Monocytes 0.5 10^3/ul (0-0.8); ABS Neutrophils 3.5 10^3/ul (1.5-7.7); ABS Nucleated RBC 0 10^3/ul; Eosinophil % 2.1 % (0-6); Hematocrit 37 % (35-47); Hemoglobin 12.7 g/dl (12.0-16.0); Lymphocyte % 27.2 % (25-47); Mean Corpuscular HGB Conc 35 g/dl (31-36); Mean Corpuscular Hemoglobin 34 pg (27-31); Mean Corpuscular Volume 97 fL (80-97); Mean Platelet Volume 8 um3 (7.4-10.4); Nucleated Red Blood Cells % 0; Platelet Count 239 10^3/ul (150-450); Red Blood Count 3.78 10^6/ul (4.0-5.4); Red Cell Distribution Width 12 % (10.5-15); White Blood Count 5.7 10^3/ul (3.5-10.8)
[2017-08-15 22:42] LABS: EGFR Non-African American 113.2 (>60)
[2017-08-15] MEDS ORDERED: Potassium Chlor TAB* 20 MEQ TAB.ER PO ONE (23:26)
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
[2017-08-16] MEDS ORDERED: Acetaminophen TAB* 325 MG PO PRN (06:39)
[2017-08-16] MEDS ORDERED: Al Hydrox/Mg Hydrox/Simet LIQ* 30 ML UDC PO PRN (06:39)
[2017-08-16] MEDS ORDERED: Haloperidol TAB* 5 MG PO PRN (06:40)
[2017-08-16] MEDS ORDERED: LORazepam TAB(*) 1 MG PO PRN (06:41)
[2017-08-16] MEDS ORDERED: FLUoxetine CAP* 10 MG PO SCH (09:00)
[2017-08-16] MEDS ORDERED: ARIPiprazole TAB* 5 MG PO SCH (09:00)
[2017-08-16] MEDS ORDERED: ARIPiprazole TAB* 5 MG ONE (09:06)
[2017-08-16] MEDS ORDERED: FLUoxetine CAP* 10 MG ONE (09:07)
[2017-08-16] MEDS ORDERED: LORazepam TAB(*) 1 MG ONE (09:10)
[2017-08-16] MEDS ORDERED: Haloperidol TAB* 5 MG ONE (09:11)
[2017-08-16] MEDS: Vitamin THERAPEUTIC TAB PO SCH (10:47)
--- NOTE | 2017-08-16 11:14 | PN ---
ED Flex Patient Progress Note Subjective: This is a 46 year-old F who is pending admission to [facility] secondary to danger to herself . Pt offers no complaints at this time. Ate breakfast and overall doing well. Pt had hypokalemia on initial labs - she was provided with PO K 40mg yesterday. No clinical s/sx of K def. No further meds required. She was also found to have low TSH so a FT4 was added on - WNL. Objective: Vitals: General NAD, Alert and oriented x3. Heart: S1/S2, RRR Lungs: CTA, BREATHING EASILY AB: + BS, soft, NTTP INTEG: no external signs of self-injury/harm Assessment: 1) danger to herself 2) mild hypokalemia Plan: 1) Pending psychiatric admit. Will follow up daily in ED . 2) replaced - no changes at this time Vital Signs Temp Pulse Resp BP Pulse Ox 98.6 F 85 18 122/68 100 08/16/17 08:24 08/16/17 08:24 08/16/17 09:31 08/16/17 08:24 08/16/17 08:24 Lab Results - Entire Visit 08/15/17 08/15/17 22:16 22:16 WBC 5.7 RBC 3.78 L Hgb 12.7 Hct 37 MCV 97 MCH 34 H MCHC 35 RDW 12 Plt Count 239 MPV 8 Neut % (Auto) 60.5 Lymph % (Auto) 27.2 Clare % (Auto) 9.1 H Eos % (Auto) 2.1 Baso % (Auto) 1.1 Absolute Neuts (auto) 3.5 Absolute Lymphs (auto) 1.6 Absolute Monos (auto) 0.5 Absolute Eos (auto) 0.1 Absolute Basos (auto) 0.1 Absolute Nucleated RBC 0 Nucleated RBC % 0 Sodium 139 Potassium 3.2 L Chloride 106 Carbon Dioxide 27 Anion Gap 6 BUN 20 Creatinine 0.57 Est GFR ( Amer) 145.6 Est GFR (Non-Af Amer) 113.2 BUN/Creatinine Ratio 35.1 H Glucose 87 Calcium 8.8 Total Bilirubin 0.20 AST 26 ALT 35 Alkaline Phosphatase 41 Total Protein 6.5 Albumin 3.8 Globulin 2.7 Albumin/Globulin Ratio 1.4 TSH 0.33 L Free T4 0.87 Beta HCG, Quant < 0.60 Salicylates < 2.50 Acetaminophen < 15 Serum Alcohol < 10
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
[2017-08-16] MEDS ORDERED: ARIPiprazole TAB* 5 MG PO ONE (21:00)
[2017-08-17] MEDS: LORazepam TAB(*) 1 MG PO SCH ×2 (03:15→21:30)
[2017-08-17] MEDS ORDERED: ARIPiprazole TAB* 5 MG PO ONE ×2 (09:00→21:00)
[2017-08-17] MEDS: Vitamin THERAPEUTIC TAB PO SCH (12:49)
--- NOTE | 2017-08-17 14:55 | PN ---
Subjective - Subjective Date of Service: 08/17/17 Service Type: 71411 Hosp care 15 min low complexity Subjective: Dayanna is seen for weekend coverage. She is lying in bed in the dark and staff reports that she has either been sleeping or seclusive to her room for most of the day, emerging briefly for meals. The patient is known to me from a previous admission earlier this year and immediately recognizes and greets me. She is overtly delusional, stating "I'm about to have my half-Jehovah'S Witness wedding in the next two days and I really need to get out of here." She has the belief that she is set to wed a celebrity hip-hop entertainer named "The Game" and that her house here in [place] is cluttered and dishevelled because they were planning to film a horror movie there "like the Saw movies." She has taken her aripiprazole as directed and staff does not document any gross behavioral disturbances, other than shouting the word "Discharge" repetitively shortly after arriving yesterday. She denies SI or HI. Objective - Appearance Appearance: Well Developed/Nourished Dysmorphic Features: No Hygiene: Normal Grooming: Fairly Well Kept - Behavior Psychomotor Activities: Normal Exhibits Abnormal Movement: No - Attitude and Relatedness Attitude and Relatedness: Psychotically Related Eye Contact: Fair - Speech Quality: Pressured Latencies: Short Quantity: Copious - Mood Patient's Decription of Mood: "Great" - Affect Observed Affect: Expansive Affect Consistent with: Euphoria - Thought Process Patient's Thought Process: Tangential Thought Content: Yes Paranoid Ideation, No Passive Wish, No Suicidal Planning, No Homicidal Ideation - Sensorium Experiencing Hallucinations: No, Sensorium is Clear Type of Hallucinations: Visual: No, Auditory: No, Command: No - Level of Consciousness Level of Consciousness: Alert Orientation: Yes Intact, Yes Orientated to Time, Yes Orientated to Place, Yes Orientated to Person - Impulse Control Impulse Control: Poor - Insight and Judgement Insight and Judgement: Impaired - Group Participation Particating in Group Activities: No - Medication Management Medication Management Adherence: Yes Assessment - Assessment Merits Inpatient Hospitalization: For Immediate Safety, For Stabilization Inpatient DSM-IV Dx: Bipolar DO, Type I, MRE Manic, severe with psychotic features Clinical Impression: 46 y.o. single, white female with a history of bipolar affective disorder brought in by the police on a 9.41 involuntary legal status after being discovered shouting and wandering into traffic in front of her house; presents manic, delusional and clearly incapable of taking care of herself in a less restrictive environment. Plan - Plan Treatment Plan: Name: DAYANNA WALTERS Birthdate: 1970 [id number] The patient has been resumed on aripiprazole therapy at 10mg daily today and 10mg PO BID tomorrow. Continue to treat on a locked and secured inpatient setting for her safety. Continued Medication Management: Start Medication Medications: Current Medications Acetaminophen (Tylenol Tab*) 650 mg PO Q4H PRN PRN Reason: PAIN or TEMP > 101 F Last Admin: 08/17/17 03:15 Dose: 650 mg Al Hydrox/Mg Hydrox/Simethicone (Maalox Plus*) 30 ml PO Q4H PRN PRN Reason: INDIGESTION Aripiprazole (Abilify Tab*) 5 mg PO ONCE ONE Stop: 08/17/17 21:01 Aripiprazole (Abilify Tab*) 10 mg PO BID@0900,2100 CATINA Haloperidol (Haldol Tab*) 5 mg PO Q4H PRN PRN Reason: AGITATION Last Admin: 08/16/17 09:33 Dose: 5 mg Lorazepam (Ativan Tab(*)) 2 mg PO Q4H PRN PRN Reason: AGITATION Last Admin: 08/16/17 09:31 Dose: 2 mg Lorazepam (Ativan Tab(*)) 2 mg PO BEDTIME CATINA Last Admin: 08/17/17 03:15 Dose: 2 mg Multivitamins (Theragran Tab*) 1 tab PO DAILY CATINA Last Admin: 08/17/17 12:49 Dose: 1 tab - Discharge Plan Discharge Plan: Inpatient Hospitalization
[2017-08-18] MEDS: ARIPiprazole TAB* 5 MG PO SCH ×2 (09:34→20:23)
[2017-08-18] MEDS: Vitamin THERAPEUTIC TAB PO SCH (09:35)
[2017-08-18] MEDS: LORazepam TAB(*) 1 MG PO SCH (20:23)
[2017-08-19] MEDS: ARIPiprazole TAB* 5 MG PO SCH ×2 (09:00→20:18)
[2017-08-19] MEDS: Vitamin THERAPEUTIC TAB PO SCH (09:00)
--- NOTE | 2017-08-19 11:20 | PN ---
Subjective - Subjective Date of Service: 08/19/17 Service Type: 34393 Hosp care 15 min low complexity Subjective: Psychiatric Attending Daily Progress Note: Weekend nursing and physican notes reviewed. Patient slept 5 to 6 hours each night. She has been attending groups. She is compliant with unit rules and has not exhibited disruptive behavior. Despite my intention to have started patient on [place] last saturday, I inadvertantly did not write the order. Patient did receive Abilify titration over weekend and is currently on 10 mg BID. She denies any current side effects including akithisia, sedation, dry mouth,constipation, diarrhea, palpitations, blurry vision, dizziness, muscle contraction, pain with swallowing, muscle spasms. Patient reviewed her history. She reports that she was discharged on Bergland and Seroquel one year ago after 30 day stay for bipolar diosrder. She reports that she developed tremor and stopped the medication on her own. upon following up with maura Topete at [facility], she was started on Abilify 5 mg daily and prozac 10 mg daily which she reports she was taking up until admission here last week. Mental Status Examination: I met Dayanna at the entrance to her room. She was very happy to be meeting me and followed me willingly to an area on the unit where we could sit and talk. she presents as a thin 47yo woman with a small frame. She appears underweight. Her hair was mid lenght, uncombed. She was dressed casually. Her hygiene was fair. Patient was well related. speech: remarkable for being hyperverbal, pressured, and loud. She was difficult at times to interrupt. Mood: was expansive and at times euphoric. she also displayed irritability when another patient briefly interrupted us. TP: flight of ideas, racing thoughts, tangentiality, overinclusiveness, circumstantiality all present patient was coherent with not evidence of thought blocking, or illogic constructs. TC: remarkable for delusions of grandeur including the belief that she will be marrying a famous rap choe named the Tommy Ennis on , that a new "Saw" movie is being surreptitiously filmed inside her house by secret cameras and both she and her fiance are going to have small parts in the movie. also present: distractibility, poor concentration, psychomotor acceleration. denies suicidal or homicidal ideation. Alelrt and fully oriented. short term memory, impaired. Insight and judgment impaired. Assessment - Assessment Merits Inpatient Hospitalization: For Immediate Safety, For Stabilization, For Discharge Planning Inpatient DSM-IV Dx: Bipolar DO, Type I, MRE Manic, severe with psychotic features Clinical Impression: Impression: 46 yo with no significant medical history and history of bipolar I with multiple past admissions for manic psychosis likely related to poor medication compliance. Patient last admitted about one year ago. since that time she has been receiving outpatient treatment at [facility] with Maura Topete and has been taking abilify and prozac. The exact doses of those medications are not available. patient has been non compliant with psychiatric medications for unknown period of time. she presents with acute chan with psychotic features which is her usual presentation. mental status remarkable for (based on record not from first hand knowledge) pressured, loud, excessive speech; psychomotor agitation, disorganized thoughts and behavior, unsafe behaviors which display severely impaired judgment, lack of insight, grandiose delusions and affective dyscontrol with elements of both irritability and euphoria. Patient remains gravely disabled with grandiose delusion that she is getting to a famous rap choe. duration of sleeping has increased but remains suboptimal. disabled and is danger to self. I was able to forge a treatment alliance with patient today and she agrees to the medication treatment plan which I presented to her today which included risks, benefits, short and mcfp side effects of both abilify and lithium. Diagnoses: Bipolar type I currently manic with psychotic features Plan - Plan Medications: Continue Abilify 10 mg BID Increase Ativan to 1 mg BID and 2 mg QHS Start Bergland CR 450 mg BID will discuss BUI with patient when chan has resolved discharge planning continue milieu, individual and group therapies. q15 min observation involuntary status
[2017-08-19] MEDS: Lithium Carbonate ER* 450 MG TAB.ER PO SCH ×2 (15:10→20:18)
[2017-08-19] MEDS: LORazepam TAB(*) 1 MG PO SCH (20:18)
[2017-08-20] MEDS: ARIPiprazole TAB* 5 MG PO SCH ×2 (09:20→20:16)
[2017-08-20] MEDS: Vitamin THERAPEUTIC TAB PO SCH (09:20)
[2017-08-20] MEDS: Lithium Carbonate ER* 450 MG TAB.ER PO SCH ×2 (09:20→20:13)
--- NOTE | 2017-08-20 11:47 | PN ---
Subjective - Subjective Date of Service: 08/20/17 Service Type: 64240 Hosp care 15 min low complexity Subjective: Continues to display manic symptoms sleeping 6 to 7 hours per night remains grandiose. cooperative with staff. attending groups. MSE: rapid, pressured, loud speech racing thoughts highly distractible irritable and euphoric mood affect: expansive, high amplitude, exaggerated displays of emotion TP: tangential, rambling but coherent, TC: continues to display inflated self concept, grandiose delusions (she is a famous rap star, she is getting to Tommy Ennis) no SI, HI, AH,VH. psychomotor acceleration present alert and oriented insight parially preserved judgment impaired Assessment - Assessment Merits Inpatient Hospitalization: For Stabilization, For Ongoing Evaluation, For Discharge Planning Inpatient DSM-IV Dx: Bipolar DO, Type I, MRE Manic, severe with psychotic features Clinical Impression: Impression: 46 yo with no significant medical history and history of bipolar I with multiple past admissions for manic psychosis likely related to poor medication compliance. Patient last admitted about one year ago. since that time she has been receiving outpatient treatment at [facility] with Maura Topete and has been taking abilify and prozac. The exact doses of those medications are not available. patient has been non compliant with psychiatric medications for unknown period of time. she presents with acute chan with psychotic features which is her usual presentation. mental status remarkable for (based on record not from first hand knowledge) pressured, loud, excessive speech; psychomotor agitation, disorganized thoughts and behavior, unsafe behaviors which display severely impaired judgment, lack of insight, grandiose delusions and affective dyscontrol with elements of both irritability and euphoria. Patient remains gravely disabled with grandiose delusion that she is getting to a famous rap choe. patient has been on adequate dosage of Abilify for past week but remains manic. sleep is still suboptimal. Diagnoses: Bipolar type I currently manic with psychotic features Plan - Discharge Plan Additional Comments: Abilify 10 mg BID Add Seroquel 50 mg qhs Ativan 2 mg QHS Increase [place] to 675 mg QAM and 450 mg qhs haldol 5 mg q4h prn agitation ativan 1 mg q 4h prn agitation
[2017-08-20] MEDS: QUEtiapine TAB* 25 MG PO SCH (20:13)
[2017-08-20] MEDS: LORazepam TAB(*) 1 MG PO SCH (20:13)
--- NOTE | 2017-08-21 10:51 | PN ---
Subjective - Subjective Date of Service: 08/22/17 Service Type: 74905 Hosp care 15 min low complexity Subjective: Compliant with unit rules, superficially social eating all meals, spends time in room obsessively organizing her personal space. patient continues with moderate to severe chan including increased goal directed behaviors, pressured speech, increased amount of speech, unstable mood including euphoria and irritability, inadequate duration of sleep (6 to 7 hours), grandiose delusions. I met with Dayanna today. she was playfully acting as if she were agitated and upset with me but clearly wasnt. She was difficult to interrupt and went from one unfinished thought to next. very hyperactive. 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 discussed lack of progress with current medication strategy and my plan to switch her abilify to Seroquel XR. She gave consent to this change. I also explained why I started her on synthroid for early lab signs of hypothyroidism which will likely progress secondary to lithium treatment which is known to suppress thyroid hormone production. Objective - Appearance Appearance: Thin Framed Dysmorphic Features: No Hygiene: Normal Grooming: Well Kept - Behavior Psychomotor Activities: Abnormal-Increased Exhibits Abnormal Movement: No - Attitude and Relatedness Attitude and Relatedness: Irritable Eye Contact: Good - Speech Quality: Pressured Latencies: Normal Quantity: Copious - Mood Patient's Decription of Mood: "Fine" - Affect Observed Affect: Expansive Affect Consistent with: Euphoria - Thought Process Patient's Thought Process: Coherent Thought Content: No Passive Wish, No Suicidal Planning, No Homicidal Ideation, No Paranoid Ideation - Sensorium Experiencing Hallucinations: No, Sensorium is Clear Type of Hallucinations: Visual: No, Auditory: No - Level of Consciousness Level of Consciousness: Alert Orientation: Yes Intact, Yes Orientated to Time, Yes Orientated to Place, Yes Orientated to Person - Impulse Control Impulse Control: Impaired - Insight and Judgement Insight and Judgement: Impaired - Group Participation Particating in Group Activities: No - Medication Management Medication Management Adherence: Yes Assessment - Assessment Merits Inpatient Hospitalization: For Immediate Safety, For Stabilization, For Ongoing Evaluation Inpatient DSM-IV Dx: Bipolar DO, Type I, MRE Manic, severe with psychotic features Clinical Impression: Impression: 46 yo with no significant medical history and history of bipolar I with multiple past admissions for manic psychosis likely related to poor medication compliance. Patient last admitted about one year ago. since that time she has been receiving outpatient treatment at [facility] with Maura Topete and has been taking abilify and prozac. The exact doses of those medications are not available. patient has been non compliant with psychiatric medications for unknown period of time. she presents with acute chan with psychotic features which is her usual presentation. mental status remarkable for (based on record not from first hand knowledge) pressured, loud, excessive speech; psychomotor agitation, disorganized thoughts and behavior, unsafe behaviors which display severely impaired judgment, lack of insight, grandiose delusions and affective dyscontrol with elements of both irritability and euphoria. Patient remains gravely disabled with grandiose delusion that she is getting to a famous rap choe. patient is having poor response to abilify with persistent symptoms of chan including grandiose delusions. she remains gravely disabled and in need on inpatient level of psychiatric treatment Diagnoses: Bipolar type I currently manic with psychotic features Plan - Plan Treatment Plan: individual and group therapy milieu integration discharge planning medication management to target acute chan and psychotic symptoms [place] to 675 mg QAM and 450 mg QHS Discontinue Abilify 10 mg BID Seroquel 50 mg qhs to increase sleep duration Add Seroquel XR 300 mg at 5 pm Add ativan 1 mg BID at 8 am and 1 pm ativan 2 mg qhs ativan 2 mg q4h prn agitation haldol 5 mg q4h prn severe agitation check lithium level in am Continued Medication Management: Different Medication
[2017-08-21] MEDS: Lithium Carbonate ER* 450 MG TAB.ER PO SCH ×2 (11:05→21:14)
[2017-08-21] MEDS: Vitamin THERAPEUTIC TAB PO SCH (11:08)
[2017-08-21] MEDS: ARIPiprazole TAB* 5 MG PO SCH (11:08)
[2017-08-21] MEDS: Levothyroxine TAB* 25 MCG TAB PO SCH (11:08)
[2017-08-21] MEDS ORDERED: QUEtiapine XR TAB* 300 MG PO SCH (17:00)
[2017-08-21] MEDS: QUEtiapine TAB* 25 MG PO SCH (21:14)
[2017-08-21] MEDS: LORazepam TAB(*) 1 MG PO SCH (21:16)
[2017-08-22] MEDS: Levothyroxine TAB* 25 MCG TAB PO SCH (10:31)
[2017-08-22] MEDS: Vitamin THERAPEUTIC TAB PO SCH (10:32)
[2017-08-22] MEDS: LORazepam TAB(*) 1 MG PO SCH ×3 (10:32→21:18)
--- NOTE | 2017-08-22 11:37 | PN ---
MHU: Group Therapy Note - Service Type Service Type: 68711 Group Psychotherapy - Cognitive Behavioral Group Therapy ( CBT):Patient was attentive and participatory in CBT programming this morning, and remained in good behavioral control. Patient expressed positive insights regarding relevant treatment interventions and goals.
[2017-08-22] MEDS: Lithium Carbonate ER* 450 MG TAB.ER PO SCH ×2 (12:01→21:18)
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
--- NOTE | 2017-08-22 16:21 | PN ---
MHU: Group Therapy Note - Service Type Service Type: [id number] Group Psychotherapy - Medication Education Group: Patient was attentive and participatory in group, and remained in good behavioral control. Patient expressed positive insights regarding relevant treatment interventions. Patient stated understanding of material discussed and had appropriate questions.
[2017-08-22] MEDS: QUEtiapine XR TAB* 300 MG PO SCH (17:57)
[2017-08-22] MEDS ORDERED: QUEtiapine TAB* 25 MG PO PRN (18:33)
[2017-08-23] MEDS: Levothyroxine TAB* 25 MCG TAB PO SCH (08:47)
[2017-08-23] MEDS: Lithium Carbonate ER* 450 MG TAB.ER PO SCH ×2 (09:31→21:56)
[2017-08-23] MEDS: Vitamin THERAPEUTIC TAB PO SCH (09:32)
[2017-08-23] MEDS: LORazepam TAB(*) 1 MG PO SCH ×3 (09:32→21:56)
--- NOTE | 2017-08-23 11:10 | PN ---
Subjective - Subjective Date of Service: 08/23/17 Service Type: 66741 Hosp care 15 min low complexity Subjective: sleeping up to 7 to 8 hours per night now overall has begun to show early remission of chan. She told social work coordinator today that she is not as convinced that she is being filmed for the movie saw in her home. She also told me earlier that it is entirely possible that the famous rap choe may not indeed want to her Tolerating seroquel XR 600 mg without any side effects denies dizziness, palpitations, dry mouth, constipation, increased appetite Objective - Appearance Appearance: Healthy Appearing Dysmorphic Features: No Hygiene: Normal Grooming: Well Kept - Behavior Psychomotor Activities: Abnormal-Increased Exhibits Abnormal Movement: No - Attitude and Relatedness Attitude and Relatedness: Cooperative Eye Contact: Good - Speech Quality: Pressured Latencies: Short Quantity: Copious - Mood Patient's Decription of Mood: "Great" - Affect Observed Affect: Expansive Affect Consistent with: Euphoria - Thought Process Patient's Thought Process: Tangential, Circumstantial Thought Content: No Passive Wish, No Suicidal Planning, No Homicidal Ideation, No Paranoid Ideation - Sensorium Experiencing Hallucinations: No, Sensorium is Clear Type of Hallucinations: Auditory: No, Command: No - Level of Consciousness Level of Consciousness: Alert Orientation: Yes Intact, Yes Orientated to Time, Yes Orientated to Place, Yes Orientated to Person - Impulse Control Impulse Control: Tenuous - Insight and Judgement Insight and Judgement: Fair - Group Participation Particating in Group Activities: Yes - Medication Management Medication Management Adherence: Yes Assessment - Assessment Inpatient DSM-IV Dx: Bipolar DO, Type I, MRE Manic, severe with psychotic features Clinical Impression: Impression: 46 yo with no significant medical history and history of bipolar I with multiple past admissions for manic psychosis likely related to poor medication compliance. Patient last admitted about one year ago. since that time she has been receiving outpatient treatment at [facility] with Maura Topete and has been taking abilify and prozac. The exact doses of those medications are not available. patient has been non compliant with psychiatric medications for unknown period of time. she presents with acute chan with psychotic features which is her usual presentation. mental status remarkable for (based on record not from first hand knowledge) pressured, loud, excessive speech; psychomotor agitation, disorganized thoughts and behavior, unsafe behaviors which display severely impaired judgment, lack of insight, grandiose delusions and affective dyscontrol with elements of both irritability and euphoria. Patient remains gravely disabled with grandiose delusion that she is getting to a famous rap choe. patient HAD poor response to oral abilify with persistent symptoms of chan including grandiose delusions. abilify discontinued and currently on day # 2 of Seroquel XR with improved sleep and some loosening of delusional thinking observed today. Diagnoses: Bipolar type I currently manic with psychotic features Plan - Plan Treatment Plan: individual and group therapy milieu integration discharge planning medication management to target acute chan and psychotic symptoms [place] to 675 mg QAM and 450 mg QHS [place] level ordered for 08/26/2017. Seroquel XR to 600 mg daily at 5 pm ativan 1 mg BID at 8 am and 1 pm ativan 2 mg qhs ativan 2 mg q4h prn agitation haldol 5 mg q4h prn severe agitation check lithium level on 08/26/2017
[2017-08-23] MEDS: QUEtiapine XR TAB* 300 MG PO SCH (18:08)
[2017-08-23] MEDS ORDERED: chlorproMAZINE TAB* 50 MG PO PRN (19:58)
[2017-08-24] MEDS: LORazepam TAB(*) 1 MG PO SCH ×3 (08:23→20:20)
[2017-08-24] MEDS: Lithium Carbonate ER* 450 MG TAB.ER PO SCH ×2 (08:23→20:19)
[2017-08-24] MEDS: Vitamin THERAPEUTIC TAB PO SCH (08:24)
[2017-08-24] MEDS: Levothyroxine TAB* 25 MCG TAB PO SCH (08:25)
[2017-08-24] MEDS: QUEtiapine XR TAB* 300 MG PO SCH (17:30)
[2017-08-25] MEDS: Lithium Carbonate ER* 450 MG TAB.ER PO SCH ×2 (09:08→21:23)
[2017-08-25] MEDS: LORazepam TAB(*) 1 MG PO SCH ×3 (09:09→21:24)
[2017-08-25] MEDS: Levothyroxine TAB* 25 MCG TAB PO SCH (09:09)
[2017-08-25] MEDS: Vitamin THERAPEUTIC TAB PO SCH (09:10)
[2017-08-25] MEDS: QUEtiapine XR TAB* 300 MG PO SCH (17:33)
[2017-08-26] MEDS: Levothyroxine TAB* 25 MCG TAB PO SCH (08:04)
[2017-08-26] MEDS: Vitamin THERAPEUTIC TAB PO SCH (08:04)
[2017-08-26] MEDS: Lithium Carbonate ER* 450 MG TAB.ER PO SCH ×2 (08:06→20:15)
[2017-08-26] MEDS: LORazepam TAB(*) 1 MG PO SCH ×3 (08:06→20:15)
[2017-08-26] MEDS: QUEtiapine XR TAB* 300 MG PO SCH (17:04)
--- NOTE | 2017-08-26 18:07 | PN ---
Subjective - Subjective Subjective: Dayanna reports doing well with continuing improvements in her mood and her sleep. She denies SI/HO or urges for sib or A/VH or side effects from prescribed meds. Beverly level was not drawn (probably because of the holiday). Per staff, she remains seclusive to her room. Objective - Appearance Appearance: Healthy Appearing Dysmorphic Features: No Hygiene: Normal Grooming: Well Kept - Behavior Psychomotor Activities: Normal Exhibits Abnormal Movement: No - Attitude and Relatedness Attitude and Relatedness: Superficially Cooperative Eye Contact: Fair - Speech Quality: Unpressured Latencies: Normal Quantity: Terse - Mood Patient's Decription of Mood: "Okay" - Affect Observed Affect: Constricted Affect Consistent with: Dysphoria - Thought Process Patient's Thought Process: Coherent, Goal Directed Thought Content: No Passive Wish, No Suicidal Planning, No Homicidal Ideation, No Paranoid Ideation - Sensorium Experiencing Hallucinations: No, Sensorium is Clear - Level of Consciousness Level of Consciousness: Alert Orientation: Yes Intact - Impulse Control Impulse Control: Intact - Insight and Judgement Insight and Judgement: Fair - Group Participation Particating in Group Activities: No - Medication Management Medication Management Adherence: Yes Assessment - Assessment Merits Inpatient Hospitalization: Consolidate Improvements, For Discharge Planning Inpatient DSM-IV Dx: Bipolar DO, Type I, MRE Manic, severe with psychotic features Clinical Impression: Stabilizing in this structured setting; Plan - Plan Treatment Plan: Name: DAYANNA WALTERS Birthdate: 1970 [id number] Medications: Current Medications Acetaminophen (Tylenol Tab*) 650 mg PO Q4H PRN PRN Reason: PAIN or TEMP > 101 F Last Admin: 08/17/17 03:15 Dose: 650 mg Al Hydrox/Mg Hydrox/Simethicone (Maalox Plus*) 30 ml PO Q4H PRN PRN Reason: INDIGESTION Chlorpromazine HCl (Thorazine Tab*) 50 mg PO BEDTIME PRN PRN Reason: insomnia Haloperidol (Haldol Tab*) 5 mg PO Q4H PRN PRN Reason: AGITATION Last Admin: 08/16/17 09:33 Dose: 5 mg Levothyroxine Sodium (Synthroid Tab*) 12.5 mcg PO DAILY@0600 [place] Last Admin: 08/26/17 08:04 Dose: 12.5 mcg Beverly Carbonate (Beverly Carbonate Er Tab*) 675 mg PO DAILY@0900 REPLACED BY [facility] Last Admin: 08/26/17 08:06 Dose: 675 mg Beverly Carbonate (Beverly Carbonate Er Tab*) 450 mg PO DAILY@2100 REPLACED BY [facility] Last Admin: 08/25/17 21:23 Dose: 450 mg Lorazepam (Ativan Tab(*)) 2 mg PO Q4H PRN PRN Reason: AGITATION Last Admin: 08/16/17 09:31 Dose: 2 mg Lorazepam (Ativan Tab(*)) 2 mg PO BEDTIME REPLACED BY [facility] Last Admin: 08/25/17 21:24 Dose: 2 mg Lorazepam (Ativan Tab(*)) 1 mg PO BID@0800,1300 REPLACED BY [facility] Last Admin: 08/26/17 13:03 Dose: 1 mg Multivitamins (Theragran Tab*) 1 tab PO DAILY REPLACED BY [facility] Last Admin: 08/26/17 08:04 Dose: 1 tab Quetiapine Fumarate (Seroquel Xr Tab*) 600 mg PO DAILY@1700 REPLACED BY [facility] Last Admin: 08/26/17 17:04 Dose: 600 mg - Discharge Plan Discharge Plan: Outpatient Follow Up
[2017-08-27] MEDS: Levothyroxine TAB* 25 MCG TAB PO SCH (07:46)
[2017-08-27] MEDS: LORazepam TAB(*) 1 MG PO SCH ×3 (07:47→21:28)
[2017-08-27] MEDS: Lithium Carbonate ER* 450 MG TAB.ER PO SCH ×2 (09:48→21:29)
[2017-08-27] MEDS: Vitamin THERAPEUTIC TAB PO SCH (09:48)
--- NOTE | 2017-08-27 12:03 | PN ---
Subjective - Subjective Date of Service: 08/27/17 Service Type: 11266 Hosp care 15 min low complexity Subjective: Psychiatric Attending Progress Note uneventful weekend. cooperative. attended groups. sleeping 8 hours per night on average. tolerating seroquel and lithium quite well without adverse effects denies tremor, dizziness, blurry vision, gait instability, polyuria, polydypsia, hypersomnolence, dry mouth, urinary incontinence or hesitancy, dystonic reaction. [place] Level on 1125 mg of lithium daily = 0.63 ( Objective - Appearance Appearance: Well Developed/Nourished Dysmorphic Features: No Hygiene: Normal Grooming: Fairly Well Kept - Behavior Psychomotor Activities: Abnormal-Increased Exhibits Abnormal Movement: No - Attitude and Relatedness Attitude and Relatedness: excessively friendly Eye Contact: Good - Speech Quality: Pressured - mild Latencies: Normal Quantity: Copious - Mood Patient's Decription of Mood: remains abnormally elevated (when discussing erotomanic delusion of famous rap star who is in love with her) alternating with irritable (with another patient who interrupted our chat) - Affect Observed Affect: Labile Affect Consistent with: Euphoria - Thought Process Patient's Thought Process: Tangential, Circumstantial Thought Content: No Passive Wish, No Suicidal Planning, No Homicidal Ideation, No Paranoid Ideation - Sensorium Experiencing Hallucinations: No, Sensorium is Clear Type of Hallucinations: Visual: No, Auditory: No, Command: No - Level of Consciousness Level of Consciousness: Alert Orientation: Yes Intact, Yes Orientated to Time, Yes Orientated to Place, Yes Orientated to Person - Impulse Control Impulse Control: Impaired - Insight and Judgement Insight and Judgement: Fair - Group Participation Particating in Group Activities: Yes - Medication Management Medication Management Adherence: Yes Assessment - Assessment Merits Inpatient Hospitalization: For Stabilization Inpatient DSM-IV Dx: Bipolar DO, Type I, MRE Manic, severe with psychotic features Clinical Impression: Impression: 46 yo with no significant medical history and history of bipolar I with multiple past admissions for manic psychosis likely related to poor medication compliance. Patient last admitted about one year ago. since that time she has been receiving outpatient treatment at [facility] with Maura Topete and has been taking abilify and prozac. The exact doses of those medications are not available. patient has been non compliant with psychiatric medications for unknown period of time. she presents with acute chan with psychotic features which is her usual presentation. mental status remarkable for (based on record not from first hand knowledge) pressured, loud, excessive speech; psychomotor agitation, disorganized thoughts and behavior, unsafe behaviors which display severely impaired judgment, lack of insight, grandiose delusions and affective dyscontrol with elements of both irritability and euphoria. Patient remains gravely disabled with grandiose delusion that she is getting to a famous rap choe. patient HAD poor response to oral abilify with persistent symptoms of chan including grandiose delusions. abilify discontinued and currently on day # 5 of Seroquel XR 600 mg daily. Patient's mental status has begun to improve with greater duration of sleep, improved clarity of speech/thought, and less accelerated psychomotor behavior. Erotomanic delusion of being love interest of famous rap choe, although still present, is breaking down. patient able to concede that she may have exaggerated the relationship in her head. She still believes that he contacted her on social media and expressed interest in dating and marrying her. Patient has ongoing chan with psychotic symptoms and requires continujed hospitalization for stabalization and provision of safety. Diagnoses: Bipolar type I currently manic with psychotic features Plan - Plan Treatment Plan: individual and group therapy milieu integration discharge planning medication management to target acute chan and psychotic symptoms Increase [place] to 675 mg BID X 1 day and then Increase to 675 mg QAM and 900 mg QHS thereafter [place] level ordered for 08/29/2017. Seroquel XR 600 mg daily at 5 pm ativan 1 mg BID at 8 am and 1 pm ativan 2 mg qhs ativan 2 mg q4h prn agitation Increase Chlorpromazine to 100 mg qhs EKG to check QTc on saturday Wll call ACT team per social work note to come to hospital to interview patient. Medications: Current Medications Acetaminophen (Tylenol Tab*) 650 mg PO Q4H PRN PRN Reason: PAIN or TEMP > 101 F Last Admin: 08/17/17 03:15 Dose: 650 mg Al Hydrox/Mg Hydrox/Simethicone (Maalox Plus*) 30 ml PO Q4H PRN PRN Reason: INDIGESTION Chlorpromazine HCl (Thorazine Tab*) 50 mg PO BEDTIME PRN PRN Reason: insomnia Haloperidol (Haldol Tab*) 5 mg PO Q4H PRN PRN Reason: AGITATION Last Admin: 08/16/17 09:33 Dose: 5 mg Levothyroxine Sodium (Synthroid Tab*) 12.5 mcg PO DAILY@0600 [facility] Last Admin: 08/27/17 07:46 Dose: 12.5 mcg [place] Carbonate ([place] Carbonate Er Tab*) 675 mg PO BID@09,21 [facility] Lorazepam (Ativan Tab(*)) 2 mg PO Q4H PRN PRN Reason: AGITATION Last Admin: 08/16/17 09:31 Dose: 2 mg Lorazepam (Ativan Tab(*)) 2 mg PO BEDTIME [facility] Last Admin: 08/26/17 20:15 Dose: 2 mg Lorazepam (Ativan Tab(*)) 1 mg PO BID@0800,1300 [facility] Last Admin: 08/27/17 07:47 Dose: 1 mg Multivitamins (Theragran Tab*) 1 tab PO DAILY [facility] Last Admin: 08/27/17 09:48 Dose: 1 tab Quetiapine Fumarate (Seroquel Xr Tab*) 600 mg PO DAILY@1700 [facility] Last Admin: 08/26/17 17:04 Dose: 600 mg - Discharge Plan Additional Comments: Abilify 10 mg BID Add Seroquel 50 mg qhs Ativan 2 mg QHS Increase [place] to 675 mg QAM and 450 mg qhs haldol 5 mg q4h prn agitation ativan 1 mg q 4h prn agitation
--- NOTE | 2017-08-27 12:03 | PN ---
MHU: Group Therapy Note - Service Type Service Type: [id number] Group Psychotherapy - Cognitive Behavioral Group Therapy ( CBT):Patient was attentive and participatory in CBT programming this morning, and remained in good behavioral control. Patient expressed positive insights regarding relevant treatment interventions and goals.
[2017-08-27] MEDS ORDERED: chlorproMAZINE TAB* 50 MG PO PRN (14:46)
[2017-08-27] MEDS: QUEtiapine XR TAB* 300 MG PO SCH (17:33)
[2017-08-27] MEDS ORDERED: LITHIUM PO SCH (21:00)
[2017-08-27] MEDS ORDERED: Lithium Carbonate ER (NF) 300 MG TAB.ER PO SCH (21:20)
[2017-08-27] MEDS: Lithium Carbonate ER (NF) 300 MG TAB.ER PO SCH (21:31)
[2017-08-28] MEDS: Levothyroxine TAB* 25 MCG TAB PO SCH (07:51)
[2017-08-28] MEDS: Lithium Carbonate ER* 450 MG TAB.ER PO SCH (07:53)
[2017-08-28] MEDS: Vitamin THERAPEUTIC TAB PO SCH (07:53)
[2017-08-28] MEDS: Lithium Carbonate ER (NF) 300 MG TAB.ER PO SCH (07:54)
[2017-08-28] MEDS: LORazepam TAB(*) 1 MG PO SCH ×3 (07:55→20:27)
[2017-08-28] MEDS ORDERED: Lithium Carbonate ER* 450 MG TAB.ER PO SCH ×3 (09:00→10:00)
[2017-08-28] MEDS: QUEtiapine XR TAB* 300 MG PO SCH (17:25)
[2017-08-28] MEDS ORDERED: Lithium Carbonate ER* 450 MG TAB.ER PO ONE (21:00)
[2017-08-28] MEDS ORDERED: Lithium Carbonate TAB* 300 MG PO ONE (21:00)
[2017-08-29] MEDS: Lithium Carbonate ER* 450 MG TAB.ER PO SCH (07:38)
[2017-08-29] MEDS: Levothyroxine TAB* 25 MCG TAB PO SCH (07:38)
[2017-08-29] MEDS: LORazepam TAB(*) 1 MG PO SCH ×2 (07:39→13:10)
[2017-08-29] MEDS: Vitamin THERAPEUTIC TAB PO SCH (07:39)
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
--- NOTE | 2017-08-29 16:31 | PN ---
MHU: Group Therapy Note - Service Type Service Type: [id number] Group Psychotherapy - Medication Education Group: Patient was attentive and participatory in group, and remained in good behavioral control. Patient expressed positive insights regarding relevant treatment interventions. Patient stated understanding of material discussed and had appropriate questions.
[2017-08-29] MEDS: QUEtiapine XR TAB* 300 MG PO SCH (18:02)
[2017-08-29] MEDS ORDERED: Lithium Carbonate ER* 450 MG TAB.ER PO SCH (21:00)
[2017-08-29] MEDS ORDERED: LORazepam TAB(*) 1 MG PO SCH (21:00)
[2017-08-30] MEDS: Vitamin THERAPEUTIC TAB PO SCH (07:55)
[2017-08-30] MEDS: LORazepam TAB(*) 1 MG PO SCH ×2 (07:56→13:08)
[2017-08-30] MEDS: Lithium Carbonate ER* 450 MG TAB.ER PO SCH (07:57)
[2017-08-30] MEDS: Levothyroxine TAB* 25 MCG TAB PO SCH (07:57)
[2017-08-30 08:16] VITALS: BP 100/61
--- NOTE | 2017-08-30 10:23 | DCNOTE ---
DC Assessment - Assessment Clinical Impression: Impression: manic symptoms have remitted. grandiose delusions have also loosened quite a bit. she has made significant gains she is ready for discharge Inpatient DSM-IV Dx: Bipolar DO, Type I, MRE Manic, severe with psychotic features Discharge Planning - Discharge Planning Medications: Current Medications Acetaminophen (Tylenol Tab*) 650 mg PO Q4H PRN PRN Reason: PAIN or TEMP > 101 F Last Admin: 08/17/17 03:15 Dose: 650 mg Al Hydrox/Mg Hydrox/Simethicone (Maalox Plus*) 30 ml PO Q4H PRN PRN Reason: INDIGESTION Chlorpromazine HCl (Thorazine Tab*) 100 mg PO BEDTIME PRN PRN Reason: insomnia Haloperidol (Haldol Tab*) 5 mg PO Q4H PRN PRN Reason: AGITATION Last Admin: 08/16/17 09:33 Dose: 5 mg Levothyroxine Sodium (Synthroid Tab*) 12.5 mcg PO DAILY@0600 [facility] Last Admin: 08/30/17 07:57 Dose: 12.5 mcg [place] Carbonate ([place] Carbonate Er Tab*) 900 mg PO BEDTIME [facility] Last Admin: 08/29/17 21:18 Dose: 900 mg [place] Carbonate ([place] Carbonate Er Tab*) 675 mg PO 0900 [facility] Last Admin: 08/30/17 07:57 Dose: 675 mg Lorazepam (Ativan Tab(*)) 2 mg PO Q4H PRN PRN Reason: AGITATION Last Admin: 08/16/17 09:31 Dose: 2 mg Lorazepam (Ativan Tab(*)) 1 mg PO BEDTIME [facility] Last Admin: 08/29/17 21:18 Dose: 1 mg Lorazepam (Ativan Tab(*)) 0.5 mg PO BID@0800,1300 [facility] Last Admin: 08/30/17 07:56 Dose: 0.5 mg Multivitamins (Theragran Tab*) 1 tab PO DAILY [facility] Last Admin: 08/30/17 07:55 Dose: 1 tab Quetiapine Fumarate (Seroquel Xr Tab*) 600 mg PO DAILY@1700 [facility] Last Admin: 08/29/17 18:02 Dose: 600 mg Discharge Planning: Prescriptions provided for discharge [] Yes [] No Follow up care details as per social work arrangements. Patient response to discharge plan: [] eager for discharge [] agreeable with discharge plan [] ambivalent about discharge [] disagrees with discharge today
--- NOTE | 2017-08-30 12:51 | PN ---
MHU: Group Therapy Note - Service Type Service Type: [id number] Group Psychotherapy - Cognitive Behavioral Group Therapy ( CBT):Patient was attentive and participatory in CBT programming this morning, and remained in good behavioral control. Patient expressed positive insights regarding relevant treatment interventions and goals.
[2017-08-30] MEDS: QUEtiapine XR TAB* 300 MG PO SCH (17:55)
== END 2017-08-30 18:45 | disposition home or self-care (01) | DRG 753 ==
LOC: ED 20:47 → BSU 08-16 10:44
PROVIDERS: ADMIT Psychiatry & Neurology Psychiatry; ATTEND Psychiatry & Neurology Psychiatry
PROC: GZHZZZZ Group Psychotherapy (ICD-10-PCS; principal; 2017-08-22)
DX: F31.2 Bipolar disorder, current episode manic severe with psychotic features (principal); Z91.14 Patient's other noncompliance with medication regimen; E87.6 Hypokalemia; F12.90 Cannabis use, unspecified, uncomplicated; Z82.49 Family history of ischemic heart disease and other diseases of the circulatory system; Z80.9 Family history of malignant neoplasm, unspecified; Z87.891 Personal history of nicotine dependence; Z72.89 Other problems related to lifestyle
CPT/HCPCS: 36415; 80053; 80061; 80178; 80320; 80329; 83036; 84132; 84436; 84439; 84443; 84702; 85025; 86376; 86800; 90853; 93005; 99222; 99231; 99232; A9270-GY; G0480; J1200; J1630; J2060